=== PATIENT | female | born 1960 | race African-American/Black ===

== ENCOUNTER 2018-03-10 10:45 | Outpatient (CLI) | payer BC | END 2018-03-10 10:46 | disposition home or self-care (01) | LOC: BICMAMMO 10:45 | PROVIDERS: ATTEND Family Medicine | DX: Z12.31 Encounter for screening mammogram for malignant neoplasm of breast (principal); R92.1 Mammographic calcification found on diagnostic imaging of breast; Z80.3 Family history of malignant neoplasm of breast | CPT/HCPCS: 77063; 77067 ==

== ENCOUNTER 2018-09-22 07:59 | Outpatient (CLI) | payer BC ==
--- NOTE | 2018-09-22 10:39 | CT ---
CT NECK SOFT TISSUES WITH CONTRAST: Date: 09/22/18 HISTORY: 58-year-old female with K11.20, parotiditis. FINDINGS: The bilateral parotid glands have symmetrically diffusely increased enhancement, right side asymmetri dayanara greater than left. Furthermore, there is diffuse intraglandular ductal ectasia, right greater t christensen left. No sialolith is visualized, either intraglandular or in Stensen's ducts. No abscess is visu alized. There is no fat stranding around the parotid glands. The right parotid gland is actually sli ghtly smaller than the left. Bilateral submandibular glands have symmetrically mildly increased enhancement, and also have mild in traglandular ductal ectasia. No sialolith, either intraglandular or in Warthin's ducts. The lingual tonsil and adenoids are diffusely enlarged, with mildly increased enhancement. There are multiple mildly enlarged bilateral retrojugular Level II lymph nodes. No abscess. There are bilaterally symmetrical enhancing tissues along the bilateral mylohyoid muscles, one on eac h side, which resembles salivary gland tissue. These may represent inferior extensions of the subling ual glands, or could represent accessory submandibular glands. No other abnormality of the sublingual , parapharyngeal, retropharyngeal, perivertebral, felt strip finisher, carotid, or posterior cervical, spaces. No discrete neoplastic solid tumor mass is identified. The thyroid gland demonstrates no discrete mass. No major pathology of the larynx. No major osseous p athology identified. The region of the palatine tonsils is symmetrically mildly prominent. IMPRESSION: 1. Increased enhancement and mild ductal ectasia of all salivary glands. 2. This is asymmetrically greater regarding the right parotid gland, which has higher degree of enha ncement compared to the left, is slightly smaller than the left, and has a greater degree of intragla ndular ductal ectasia. This is consistent with sialadenitis of the right parotid gland (right parotit is), and questionably involving all salivary glands. 3. No obstructing sialolith. 4. Hyperplasia of Waldeyer's ring, more specifically the lingual tonsil and adenoids. POS: [facility]
[2018-09-22] MEDS ORDERED: ISOVUE-370 76%-LOCM 1 ML ONE (13:15)
== END 2018-09-22 08:00 | disposition home or self-care (01) ==
LOC: BICCT 07:59
PROVIDERS: ATTEND Physician Assistant
DX: K11.20 Sialoadenitis, unspecified (principal); K11.8 Other diseases of salivary glands
CPT/HCPCS: 70491; Q9966

== ENCOUNTER 2018-10-29 09:04 | Outpatient (CLI) | payer BC ==
--- NOTE | 2018-10-29 10:57 | CT ---
CT PULMONARY LUNG SCAN WITHOUT CONTRAST: HISTORY: Low-dose lung cancer screening evaluation for a 58-year-old female with a 40+ pack year smoking histo ry. The patient continues to smoke. COMPARISON: Prior CT of the thorax with contrast dated 10/25/2015. FINDINGS: There is mild to moderate scattered centrilobular and paraseptal emphysema. No suspicious pulmonary nodule or pleural effusion is demonstrated. There are vascular calcifications involving the coronary artery and thoracic aorta. No definite enla rged lymph nodes are evident within the mediastinum or axillary region. The visualized upper abdomen demonstrates no acute abnormality. No acute osseous abnormality is evident. There is scattered degenerative and osteoarthritic change. IMPRESSION: Lung RADS category 1 - negative. Recommend annual low-dose CT screening evaluation of the lungs. POS: [facility]
== END 2018-10-29 09:05 | disposition home or self-care (01) ==
LOC: CT 09:04
PROVIDERS: ATTEND Family Medicine
DX: F17.210 Nicotine dependence, cigarettes, uncomplicated (principal)
CPT/HCPCS: G0297

== ENCOUNTER 2018-12-31 16:39 | Emergency (ER) | payer BC ==
--- NOTE | 2019-01-02 16:48 | EKG ---
Test Reason : Blood Pressure : / mmHG Vent. Rate : 053 BPM Atrial Rate : 053 BPM P-R Int : 190 ms QRS Dur : 094 ms QT Int : 420 ms P-R-T Axes : 055 023 051 degrees QTc Int : 394 ms Sinus bradycardia Incomplete right bundle branch block Borderline ECG Confirmed by FRACISCO BASS ([id number]), clinical editor RAKESH PEDRO ([id number]) on 01/02/2019 4:47:13 PM Referred By: Confirmed By:FRACISCO BASS
== END 2018-12-31 19:05 | disposition home or self-care (01) ==
LOC: ERS 16:39
DX: K55.1 Chronic vascular disorders of intestine (principal); I10 Essential (primary) hypertension; F17.210 Nicotine dependence, cigarettes, uncomplicated; Z79.899 Other long term (current) drug therapy; Z79.82 Long term (current) use of aspirin
CPT/HCPCS: 93005

== ENCOUNTER 2019-01-01 14:16 | Outpatient (CLI) | payer BC ==
[~2019-01-01 14:16] MED LIST: ISOVUE-370 76%-LOCM 1 ML ONE
--- NOTE | 2019-01-01 15:34 | CT ---
CTA of the abdomen with and without contrast utilizing 3-D reformatted imaging INDICATION: Concern for mesenteric insufficiency; severe back pain and upper abdominal pain COMPARISON: None FINDINGS: Aorta: There are moderate to severe calcifications involving the abdominal pelvic vasculature. No ane urysmal dilatation is seen involving the abdominal aorta. Celiac artery: There is high-grade stenosis involving the origin and proximal aspect of the celiac ar marlen with poststenotic dilatation. There is nonenhancing inflammatory stranding seen surrounding the base of the celiac axis. SMA: There is mild narrowing involving the proximal SMA. No hemodynamically significant stenosis is e vident. No definite thrombus is evident within the visualized segments of the mesenteric axis. There is appropriate opacification of the mesenteric radicles to the small bowel and colon. [place]: Patent. Renal arteries: There is moderate narrowing involving the origin and proximal aspect of the right surya al artery. There is mild narrowing involving the origin of the left renal artery. Iliac arteries: There is mild atherosclerotic plaque involving the iliac vasculature. There is mild-t o-moderate narrowing involving the left common femoral artery. Additional abdominal findings: There is mild bibasilar atelectasis. No focal hepatic lesion is evident. There is gallbladder sludge seen within the gallbladder. The pancreas, adrenal glands and spleen appear within normal limits. No focal renal lesion is evident. No lymphadenopathy or free fluid is identified. Small bowel is of n ormal caliber. There is a normal appendix within the lower pelvis. The reproductive structures, rectum and perirectal soft tissues are unremarkable. The bladder is decompressed. No acute osseous ab normality is evident. There is scattered degenerative and osteoarthritic change present. IMPRESSION: 1. 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 There is nonspecif ic inflammatory stranding surrounding the base of the celiac axis which may be related to of vasculitis or inflammatory change from atherosclerotic disease. Less likely consideration would be fo gustavo region of retroperitoneal fibrosis. 2. Mild narrowing involving the proximal SMA. No additional hemodynamically significant stenosis demo nstrated. 3. Moderate narrowing involving the origin proximal aspect of the right renal artery. 4. Sxov-na-itlcowby narrowing of the left common femoral artery.
== END 2019-01-01 14:17 | disposition home or self-care (01) ==
LOC: BICCT 14:16
PROVIDERS: ATTEND Family Medicine
DX: K55.1 Chronic vascular disorders of intestine (principal); R10.9 Unspecified abdominal pain; I77.1 Stricture of artery; I77.4 Celiac artery compression syndrome; I70.1 Atherosclerosis of renal artery; K55.059 Acute (reversible) ischemia of intestine, part and extent unspecified; I70.202 Unspecified atherosclerosis of native arteries of extremities, left leg
CPT/HCPCS: 74174; Q9966

== ENCOUNTER 2019-03-16 11:23 | Outpatient (CLI) | payer BC ==
--- NOTE | 2019-03-16 14:32 | MMO ---
Bilateral MAMMO Bilat Screen [facility]. CLINICAL HISTORY: Patient is 59 years old and is seen for screening. The patient has the following family history of breast cancer: maternal aunt. The patient has no personal history of cancer. VIEWS: The views performed were: bilateral craniocaudal with tomosynthesis and bilateral mediolateral oblique with tomosynthesis. FILMS COMPARED: The present examination has been compared to a prior imaging study performed at [facility] on 03/10/2018. MAMMOGRAM FINDINGS: There are scattered fibroglandular densities. Finding 1: There are stable benign appearing calcifications seen in both breasts. Finding 2: There is a stable biopsy clip seen in the right breast. There are no suspicious masses, suspicious calcifications, or new areas of architectural distortion. IMPRESSION: THERE IS NO MAMMOGRAPHIC EVIDENCE OF MALIGNANCY. A ROUTINE FOLLOW-UP MAMMOGRAM IN 1 YEAR IS RECOMMENDED. THE RESULTS OF THIS EXAM WERE SENT TO THE PATIENT. ACR BI-RADS Category 2 - Benign finding MAMMOGRAPHY NOTE: 1. A negative mammogram report should not delay a biopsy if a dominant of clinically suspicious mass is present. 2. Approximately 10% to 15% of breast cancers are not detected by mammography. 3. Adenosis and dense breasts may obscure an underlying neoplasm. Reported by: CARA MCCLOUD MD Electonically Signed: [id number]
== END 2019-03-16 11:24 | disposition home or self-care (01) ==
LOC: BICMAMMO 11:23
PROVIDERS: ATTEND Family Medicine
DX: Z12.31 Encounter for screening mammogram for malignant neoplasm of breast (principal); Z80.3 Family history of malignant neoplasm of breast
CPT/HCPCS: 77063; 77067

== ENCOUNTER 2020-03-22 09:11 | Outpatient (CLI) | payer BC ==
--- NOTE | 2020-03-22 11:45 | MMO ---
Bilateral MAMMO Bilat Screen [facility]. CLINICAL HISTORY: Patient is 60 years old and is seen for screening. The patient has the following family history of breast cancer: maternal aunt. The patient has no personal history of cancer. VIEWS: The views performed were: bilateral craniocaudal with tomosynthesis and bilateral mediolateral oblique with tomosynthesis. FILMS COMPARED: The present examination has been compared to prior imaging studies performed at [facility] on 03/10/2018 and 03/16/2019. This study has been interpreted with the assistance of computer-aided detection. MAMMOGRAM FINDINGS: There are scattered fibroglandular densities. Benign calcifications are noted bilaterally. Right biopsy clip. There are no suspicious masses, suspicious calcifications, or new areas of architectural distortion. IMPRESSION: THERE IS NO MAMMOGRAPHIC EVIDENCE OF MALIGNANCY. A ROUTINE FOLLOW-UP MAMMOGRAM IN 1 YEAR IS RECOMMENDED. THE RESULTS OF THIS EXAM WERE SENT TO THE PATIENT. ACR BI-RADS Category 2 - Benign finding MAMMOGRAPHY NOTE: 1. A negative mammogram report should not delay a biopsy if a dominant of clinically suspicious mass is present. 2. Approximately 10% to 15% of breast cancers are not detected by mammography. 3. Adenosis and dense breasts may obscure an underlying neoplasm. Reported by: VIOLETA LAGUNAS MD Electonically Signed: [id number]
== END 2020-03-22 09:12 | disposition home or self-care (01) ==
LOC: BICMAMMO 09:11
PROVIDERS: ATTEND Family Medicine
DX: Z12.31 Encounter for screening mammogram for malignant neoplasm of breast (principal); Z80.3 Family history of malignant neoplasm of breast
CPT/HCPCS: 77063; 77067

== ENCOUNTER 2022-03-20 10:51 | Outpatient (CLI) | payer BC | END 2022-03-20 10:52 | disposition home or self-care (01) | LOC: TBSIIMAG 10:51 | PROVIDERS: ATTEND Student in an Organized Health Care Education/Training Program | DX: M79.604 Pain in right leg (principal); M79.605 Pain in left leg; M48.00 Spinal stenosis, site unspecified; M47.816 Spondylosis without myelopathy or radiculopathy, lumbar region | CPT/HCPCS: 72148 ==

== ENCOUNTER 2022-04-08 09:18 | Outpatient (CLI) | payer BC | END 2022-04-08 09:19 | disposition home or self-care (01) | LOC: BICMAMMO 09:18 | PROVIDERS: ATTEND Family Medicine | DX: Z12.31 Encounter for screening mammogram for malignant neoplasm of breast (principal); Z80.3 Family history of malignant neoplasm of breast; Z98.891 History of uterine scar from previous surgery | CPT/HCPCS: 77063; 77067 ==

== ENCOUNTER 2023-05-30 08:58 | Outpatient (CLI) | payer BC | END 2023-05-30 08:59 | disposition home or self-care (01) | LOC: BICMAMMO 08:58 | PROVIDERS: ATTEND Family Medicine | DX: Z12.31 Encounter for screening mammogram for malignant neoplasm of breast (principal); Z80.3 Family history of malignant neoplasm of breast; Z91.89 Other specified personal risk factors, not elsewhere classified | CPT/HCPCS: 77063; 77067 ==

== ENCOUNTER 2024-01-15 16:00 | Outpatient (CLI) | payer BC | END 2024-01-15 16:01 | disposition home or self-care (01) | LOC: SLEEPLAB 16:00 | PROVIDERS: ATTEND Family Medicine | DX: G47.33 Obstructive sleep apnea (adult) (pediatric) (principal); R06.83 Snoring; G47.61 Periodic limb movement disorder; I10 Essential (primary) hypertension; G47.00 Insomnia, unspecified | CPT/HCPCS: 95800 ==

== ENCOUNTER 2024-03-12 09:35 | Outpatient (CLI) | payer BC | END 2024-03-12 09:36 | disposition home or self-care (01) | LOC: BICCT 09:35 | PROVIDERS: ATTEND Family Medicine | DX: Z12.2 Encounter for screening for malignant neoplasm of respiratory organs (principal); F17.210 Nicotine dependence, cigarettes, uncomplicated | CPT/HCPCS: 71271 ==

== ENCOUNTER 2024-04-23 10:22 | Emergency (ER) | payer BC ==
[2024-04-23 11:02] LABS: #Basophils Less than 0.03 10x3/uL (0.0-0.2); %Basophils 0.5 % (0.0-1.0); %Eosinophils 1.8 % (0.0-10.0); %Lymphocytes 56.6 % (21.0-51.0); %Monocytes 7.9 % (0.0-10.0); Hematocrit 39.4 % (36.0-47.0); Hemoglobin 12.5 g/dL (12.0-16.0); Mean Corpuscular HGB CONC 31.7 g/dL (32.0-36.0); Mean Corpuscular Hemoglobin 28.3 pg (27.0-31.0); Mean Corpuscular Volume 89.3 fL (78.0-98.0); Mean Platelet Volume 9.7 fL (7.4-10.4); Platelet Count 254 10x3/uL (130-400); RBC Distribution Width 13.7 % (11.5-14.5); Red Blood Cell (RBC) Count 4.41 mill/uL (4.20-5.40)
[2024-04-23] MEDS ORDERED: Acetaminophen 500 MG TAB ONE (11:17)
[2024-04-23 11:21] LABS: ALT (SGPT) 22 U/L (8-55); AST (SGOT) 28 U/L (5-34); Albumin 3.9 g/dL (3.4-4.8); Alkaline Phosphatase 54 U/L (40-110); Anion Gap 14 mmol/L (10-20); BUN (Urea Nitrogen) 14 mg/dL (9.8-20.1); Bilirubin, Total 0.4 mg/dL (0.2-1.2); Calcium 9.2 mg/dL (7.8-10.44); Carbon Dioxide 22 mmol/L (23-31); Chloride 109 mmol/L (98-107); Globulin 3.2 g/dL (2.4-3.5); Glucose 100 mg/dL (80-115); Magnesium 2.2 mg/dL (1.6-2.6); Potassium 3.8 mmol/L (3.5-5.1); Protein, Total 7.1 g/dL (5.8-8.1); Sodium 141 mmol/L (136-145)
[2024-04-23 11:24] LABS: Troponin I 0.021 ng/mL (< 0.028)
[2024-04-23 11:25] LABS: PTT 31.5 sec (22.9-36.1); Prothrombin Time 12.7 sec (12.0-14.7)
[2024-04-23 11:30] LABS: Calc. Creatinine Clearance 0 mL/min (70-130); Estimated GFR 82
== END 2024-04-23 13:00 | disposition home or self-care (01) ==
LOC: ERS 10:22
DX: R00.1 Bradycardia, unspecified (principal); R29.898 Other symptoms and signs involving the musculoskeletal system; I10 Essential (primary) hypertension; E78.5 Hyperlipidemia, unspecified; F17.290 Nicotine dependence, other tobacco product, uncomplicated; Z79.82 Long term (current) use of aspirin; Z79.899 Other long term (current) drug therapy
CPT/HCPCS: 36415; 71045; 80053; 83735; 83880; 84443; 84484; 85025; 85610; 85730; 93005

== ENCOUNTER 2024-05-31 09:04 | Outpatient (CLI) | payer BC | END 2024-05-31 09:05 | disposition home or self-care (01) | LOC: BICMAMMO 09:04 | PROVIDERS: ATTEND Family Medicine | DX: Z12.31 Encounter for screening mammogram for malignant neoplasm of breast (principal); Z80.3 Family history of malignant neoplasm of breast; Z91.89 Other specified personal risk factors, not elsewhere classified | CPT/HCPCS: 77063; 77067 ==

== ENCOUNTER 2025-03-24 09:57 | Outpatient (CLI) | payer OTHER | END 2025-03-24 09:58 | disposition home or self-care (01) | LOC: BICRAD 09:57 | PROVIDERS: ATTEND Nurse Practitioner Family | DX: M51.360 Other intervertebral disc degeneration, lumbar region with discogenic back pain only (principal); M47.816 Spondylosis without myelopathy or radiculopathy, lumbar region | CPT/HCPCS: 72100 ==

== ENCOUNTER 2025-07-06 07:36 | Outpatient (CLI) | payer OTHER | END 2025-07-06 07:37 | disposition home or self-care (01) | LOC: BICCT 07:36 | PROVIDERS: ATTEND Family Medicine | DX: Z12.2 Encounter for screening for malignant neoplasm of respiratory organs (principal); Z87.891 Personal history of nicotine dependence | CPT/HCPCS: 71271 ==